=== PATIENT | female | born 1955 | race Caucasian/White ===

== ENCOUNTER 2017-12-07 11:53 | Emergency (ER) | payer OTHER ==
[2017-12-07 12:00] VITALS: BP 133/65; PULSE 82; RESP 16; TEMP 97.7; O2SAT 97
--- NOTE | 2017-12-07 12:20 | EDPHY ---
H & P Time Seen by Provider: 12/07/17 12:01 HPI/ROS: CHIEF COMPLAINT: Pinkeye and URI symptoms History by patient HISTORY OF PRESENT ILLNESS: 62-year-old woman presents complaining of 1 week of URI symptoms including cough, runny nose, sore throat which is now resolved and sinus congestion and "draining "green stuff ". Patient denies any fever chills, nausea vomiting or difficulty breathing chest pain. Over the past 2 days she has noticed redness and itchy feeling in her left eye and waking up with matted greenish discharge in her eye. She denies any difficulty with her vision. There is no pain in the eye. Her grandson has a similar illness. She is wondering if she should take antibiotics for her sinusitis. REVIEW OF SYSTEMS: As in HPI, and all other systems reviewed and are negative Smoking Status: Never smoked Physical Exam: General Appearance: Alert and no distress. Head: normocephalic, atraumatic, no sinus tenderness Eyes: Pupils equal and round, extraocular movements are intact, positive conjunctival injection and erythema Ears: TM clear bilat OP: mucus membranes moist, no tonsillar enlargement, mild erythema, no exudates Neck: no meningismus, left greater than right cervical nodes, no submandibular nodes Respiratory: Chest is nontender, lungs are clear to auscultation. Cardiac: regular rate and rhythm. Gastrointestinal: Abdomen is soft and nontender, no masses, bowel sounds normal. Musculoskeletal: Neck is supple and nontender. Extremities have full range of motion and are nontender. Skin: No rashes or lesions. Constitutional: Initial Vital Signs Temperature (C) 36.5 C 12/07/17 11:57 Heart Rate 82 12/07/17 11:57 Respiratory Rate 16 12/07/17 11:57 Blood Pressure 133/65 H 12/07/17 11:57 O2 Sat (%) 97 12/07/17 11:57 O2 Delivery Mode Room Air Allergies/Adverse Reactions: corn Allergy (Verified 12/07/17 12:01) Pt reports rash, diarrhea gluten [Gluten] Allergy (Verified 12/07/17 12:01) Pt reports rash and diarrhea lactose [Lactose] Allergy (Verified 12/07/17 12:01) Pt reports skin rash, diarrhea Home Medications: Medication Instructions Recorded Premarin 04/22/10 SYNTHROID 04/22/10 Vit E 04/22/10 Calcium 12/07/17 Multivitamin 12/07/17 Polymyxin B Sulf/Trimethoprim 1 drop EACHEYE QID #1 btl 12/07/17 [Polymyxin B-Tmp Eye Drops] MDM/Departure - [facility] ED Course/Re-evaluation: 62-year-old woman presents with URI symptoms and conjunctivitis. Will treat the patient's conjunctivitis with topical antibiotics. We discussed other was no need for antibiotics for her other URI symptoms. We discussed home care and return precautions. Patient is discharged home in stable condition. - Depart Disposition: Home, Routine, Self-Care Clinical Impression: Acute upper respiratory infection Conjunctivitis, acute, left eye Qualifiers: Acute conjunctivitis type: unspecified Qualified Code(s): H10.32 - Unspecified acute conjunctivitis, left eye Condition: Good Instructions: Conjunctivitis (ED) Additional Instructions: You were seen by Dr. Mary Dorman. Use a humidifier in the room where you sleep. Try hot drinks with honey. Take ibuprofen 400-600mg 4 times daily and Tylenol 500-1000mg every 6 hours as needed for fever and/or pain. Use eye drops as prescribed for your conjunctivitis. Return for any worsening or new concerns. Prescriptions: Polymyxin B Sulf/Trimethoprim [Polymyxin B-Tmp Eye Drops] 1 drop EACHEYE QID #1 btl Referrals: Doctor Not,On Staff, MD [Primary Care Provider] - As per Instructions
== END 2017-12-07 12:25 | disposition home or self-care (01) ==
LOC: CED 11:53
DX: J06.9 Acute upper respiratory infection, unspecified (principal); H10.32 Unspecified acute conjunctivitis, left eye

== ENCOUNTER → 2018-03-27 | Outpatient (CLI) | payer OTHER | LOC: FIMAGING 08:39 | DX: Z12.31 Encounter for screening mammogram for malignant neoplasm of breast (principal) ==